=== PATIENT | female | born 1985 | race Caucasian/White ===

== ENCOUNTER 2023-11-20 20:26 | Emergency (ER) | payer BC ==
[2023-11-20] MEDS: Ketorolac 30 MG/ML SDV IVPUSH ONE (22:54)
[2023-11-21] MEDS: Ketorolac 30 MG/ML SDV ONE (01:21)
== END 2023-11-21 01:28 | disposition home or self-care (01) ==
LOC: JD.ED 20:26
DX: S00.83XA Contusion of other part of head, initial encounter (principal); X58.XXXA Exposure to other specified factors, initial encounter
CPT/HCPCS: 70450; 70486; 96374; 99284; J1885; 99283